=== PATIENT | male | born 1970 | race Caucasian/White ===

== ENCOUNTER → 2020-01-25 19:09 | Outpatient (BNVA) | payer OTHER, SELFPAY | PROVIDERS: Visit Provider Nurse Practitioner Family | DX: R50.9 Fever, unspecified (principal) | CPT/HCPCS: 87400; 87635 ==

== ENCOUNTER → 2020-03-17 09:11 | Outpatient (BNVA) | payer OTHER, SELFPAY | PROVIDERS: Referring Provider Nurse Practitioner; Visit Provider Podiatrist Foot & Ankle Surgery | DX: M79.671 Pain in right foot (principal); M20.21 Hallux rigidus, right foot; S92.911A Unspecified fracture of right toe(s), initial encounter for closed fracture; W22.09XA Striking against other stationary object, initial encounter | CPT/HCPCS: 73630 ==

== ENCOUNTER → 2020-05-25 16:35 | Outpatient (BNVA) | payer OTHER, SELFPAY | PROVIDERS: Visit Provider Dermatology | DX: D48.9 Neoplasm of uncertain behavior, unspecified (principal) | CPT/HCPCS: 88304 ==

== ENCOUNTER → 2020-09-30 13:31 | Outpatient (BNVA) | payer OTHER, SELFPAY | PROVIDERS: PCP Nurse Practitioner; Visit Provider Surgery | DX: Z01.812 Encounter for preprocedural laboratory examination (principal); Z86.010 Personal history of colon polyps | CPT/HCPCS: 87635 ==

== ENCOUNTER 2020-10-05 06:14 | Day surgery (SDC) | payer OTHER, SELFPAY ==
[2020-10-03 14:30] VITALS: BMI 28.0
[2020-10-05 06:29] VITALS: BP 131/86; PULSE 59; RESP 18; TEMP 36.2; O2SAT 97
--- NOTE | 2020-10-05 06:37 | W.PM.OPSUD ---
Surgery/Procedure H&P Update DATE OF PROCEDURE: October 05, 2020 DATE H&P PERFORMED: 09/07/20 H&P UPDATE INFORMATION: I have reviewed H&P completed within last 30 days, I have examined patient prior to procedure and No changes to prior documentation PREOP DIAGNOSIS: History of colon polyps PRIMARY INDICATION FOR PROCEDURE: The same PLANNED PROCEDURE: Operation Date: 10/05/20 07:00 Proposed Procedures p Colonoscopy 50044 Z86.010(Not Applicable) - Dylan Walsh MD
[2020-10-05] MEDS: sodium chloride 0.9% 1,000 ML 30 ML IV (06:41)
--- NOTE | 2020-10-05 06:46 | ANES.PREANE2 ---
Pre-Anesthetic Assessment Pre-Anesthetic Assessment: Height/Weight: Height 1.93 m Weight 104.326 kg Temp Pulse Resp BP Pulse Ox 97.2 F L 59 L 18 131/86 97 10/05/20 06:29 10/05/20 06:29 10/05/20 06:29 10/05/20 06:29 10/05/20 06:29 Preop Diagnosis: History of colon polyps Proposed Procedure: Operation Date: 10/05/20 07:00 Proposed Procedures p Colonoscopy 62806 Z86.010(Not Applicable) - Dylan Walsh MD Familial anesthetic complications: <del>none</del> Was Beta Ron taken within 24 hours: Yes Last intake: Intake Last Liquid Date 10/04/20 Last Liquid Time 21:00 Last Solid Date 10/03/20 Last Solid Time 18:00 Last Intake: 23:00 Social: Social History: Alcohol and No tobacco Packs per day: nightly drink Exam: Pre-Anes Outpt Exam: alert, oriented x 3, clear to auscultation bilaterally and regular rate & rhythm Airway: Submandibular: WNL Cervical ROM: WNL MP: 1 Dentition: Full Pulmonary: Pulmonary: None reported CV/HEM: CV/HEM: HTN : : None reported Hepatic: Hepatic: None reported GI: GI: GERD Metabolic: Metabolic: None reported Musc/skel: Musc/skel: Lower Back Pain Neuropsych: Neuropsych: None reported Anesthetic Plan: ASA status: 2 Anesthesia: MAC Meds/Allergies Current Medications: Current Medications Generic Name Dose Route Start Last Admin Trade Name Freq PRN Reason Stop Dose Admin Sodium Chloride 1,000 mls @ 30 ml s/hr 10/05/20 06:15 10/05/20 06:41 Sodium Chloride 0.9% IV 10/06/20 06:14 30 mls/hr .Q24H MARIA ALEJANDRA Administration PFSH Anesthesia PFSH: Medical History GERD (gastroesophageal reflux disease) Hypertension Social History Smoking and tobacco status: never smoked Alcohol intake: current Alcohol intake frequency: holidays/special occasions only Current occupational status: retired Data Anesthesia Cardiac Studies: No Data to Display
[2020-10-05 07:19] VITALS: BP 112/74; PULSE 54; RESP 16; O2SAT 98
--- NOTE | 2020-10-05 07:32 | ANE.PACU2 ---
Inpatient post-anesthesia follow up: Airway intact: Yes Vital signs: Temperature 97.2 F Pulse Rate 54 Respiratory Rate 16 Blood Pressure 112/74 Pulse Oximetry 98 Oxygen Delivery Me thod Nasal Cannula Oxygen Flow Rate 2 Fraction of Inspir ed Oxygen Hydration adequate: Yes Nausea and vomiting: No Pain level: 1
[2020-10-05 07:35] VITALS: BP 120/85; PULSE 52; RESP 16; TEMP 36.7; O2SAT 96
--- NOTE | 2020-10-05 13:00 | ANE.PACU2 ---
Inpatient post-anesthesia follow up: Airway intact: Yes Vital signs: Temperature 98.1 F Pulse Rate 52 Respiratory Rate 16 Blood Pressure 120/85 Pulse Oximetry 96 Oxygen Delivery Me thod Room Air Oxygen Flow Rate 2 Fraction of Inspir ed Oxygen Hydration adequate: Yes Nausea and vomiting: No Pain level: 2 Mental status: Baseline
== END 2020-10-05 08:14 | disposition home or self-care (01) ==
PROVIDERS: PCP Nurse Practitioner; Visit Provider Surgery
PROC: 0DJD8ZZ Inspection of Lower Intestinal Tract, Via Natural or Artificial Opening Endoscopic (ICD-10-PCS; CPT 45378; principal; 2020-10-05 07:00)
DX: Z86.010 Personal history of colon polyps (principal); K57.30 Diverticulosis of large intestine without perforation or abscess without bleeding; I10 Essential (primary) hypertension; Z79.82 Long term (current) use of aspirin
CPT/HCPCS: 45378; 96360; J2704; J7030

== ENCOUNTER → 2021-06-21 13:54 | Outpatient (BNVA) | payer OTHER, SELFPAY | PROVIDERS: PCP Nurse Practitioner; Visit Provider Nurse Practitioner Family | DX: Z20.822 Contact with and (suspected) exposure to COVID-19 (principal) | CPT/HCPCS: 87400; 87635 ==

== ENCOUNTER → 2023-02-19 15:11 | Outpatient (BNVA) | payer OTHER, SELFPAY | PROVIDERS: PCP Nurse Practitioner; Visit Provider Nurse Practitioner Family | DX: L02.32 Furuncle of buttock (principal); L82.1 Other seborrheic keratosis; Z12.83 Encounter for screening for malignant neoplasm of skin; L85.3 Xerosis cutis; D22.62 Melanocytic nevi of left upper limb, including shoulder; L81.4 Other melanin hyperpigmentation; L70.0 Acne vulgaris; L57.8 Other skin changes due to chronic exposure to nonionizing radiation | CPT/HCPCS: 99213 ==

== ENCOUNTER → 2024-03-04 11:15 | Outpatient (BNVA) | payer OTHER, SELFPAY | PROVIDERS: PCP Nurse Practitioner; Visit Provider Nurse Practitioner Family | DX: L57.8 Other skin changes due to chronic exposure to nonionizing radiation (principal); L82.1 Other seborrheic keratosis; L85.3 Xerosis cutis; D22.62 Melanocytic nevi of left upper limb, including shoulder; L81.4 Other melanin hyperpigmentation | CPT/HCPCS: 99213 ==

== ENCOUNTER → 2024-09-03 14:51 | Outpatient (BNVA) | payer OTHER, SELFPAY | PROVIDERS: PCP Nurse Practitioner; Visit Provider Podiatrist Foot & Ankle Surgery | DX: M79.671 Pain in right foot (principal); M20.21 Hallux rigidus, right foot | CPT/HCPCS: 73630; 99203 ==

== ENCOUNTER → 2024-10-19 08:02 | Outpatient (BNVA) | payer OTHER, SELFPAY | PROVIDERS: PCP Nurse Practitioner; Visit Provider Orthopaedic Surgery | DX: M24.811 Other specific joint derangements of right shoulder, not elsewhere classified (principal) | CPT/HCPCS: 73030; 99204 ==

== ENCOUNTER 2025-01-18 17:26 | Emergency (ER) | payer OTHER, SELFPAY ==
[2025-01-18 17:32] VITALS: BP 145/82; PULSE 71; RESP 17; TEMP 36.6; O2SAT 98; BMI 25.5
[2025-01-18 18:32] LABS: Basophils % 0.3 %; Eosinophils # 0.1 10^3/uL (0.0-0.8); Eosinophils % 1.6 %; Hematocrit 39.3 % (37-53); Lymphocytes # 1.9 10^3/uL (0.8-4.8); Lymphocytes % 31.3 %; Mean Corpuscular HGB Conc 32.1 g/dL (30-55); Mean Corpuscular Hemoglobin 29.4 pg (27-33); Mean Corpuscular Volume 91.6 fl (82-101); Monocytes # 0.5 10^3/uL (0.2-0.9); Monocytes % 8.2 %; Neutrophils # 3.61 10^3/uL (1.8-7.7); Neutrophils % 58.3 %; Nucleated Red Blood Cells % 0 %; Platelet Count 248 10^3/cmm (157-399); Red Blood Count 4.29 10^6/uL (3.85-5.65); Red Cell Distribution Width 12.3 % (12.1-15.1)
[2025-01-18 18:44] LABS: INR 0.95 (0.8-1.2)
[2025-01-18 18:49] LABS: Alanine Aminotransferase 25 U/L (0-41); Albumin Level 4.4 g/dL (3.5-5.2); Alkaline Phosphatase 103 U/L (40-130); Anion Gap 16.1 (5-19); Aspartate Amino Transferase 16 U/L (0-40); Blood Urea Nitrogen 23 mg/dL (6-20); Calcium 8.9 mg/dL (8.5-10.5); Carbon Dioxide 24 mmol/L (22-29); Chloride 104 mmol/L (98-107); Creatinine Clr Calc Pharmacy 133.0805; Glomerular Filtration Rate 100.4 mL/min (90-130); Glucose 98 mg/dL (65-115); Lipase 42 U/L (13-60); Osmolality Calculated 294 mOsm/kg (285-295); Potassium 4.1 mmol/L (3.5-5.1); Sodium 140 mmol/L (136-145); Total Bilirubin 1.1 mg/dL (0.15-1.2); Total Protein 6.4 g/dL (6.6-8.7)
--- NOTE | 2025-01-18 19:43 | CTR_ITS ---
PROCEDURE INFORMATION: Exam: CT Abdomen And Pelvis Without Contrast Exam date and time: 01/18/2025 8:22 PM Age: 54 years old Clinical indication: Abdominal pain; Generalized; Additional info: Abd pain TECHNIQUE: Imaging protocol: Computed tomography of the abdomen and pelvis without contrast. Radiation optimization: All CT scans at this facility use at least one of these dose optimization techniques: automated exposure control; mA and/or kV adjustment per patient size (includes targeted exams where dose is matched to clinical indication); or iterative reconstruction. COMPARISON: No relevant prior studies available. RADIATION DOSE METRICS: Total DLP (mGy-cm): 768.63 FINDINGS: Liver: Unremarkable. Gallbladder and biliary ducts: Cholelithiasis without evidence of acute cholecystitis. Pancreas: Normal. No ductal dilation. Spleen: Unremarkable. Adrenal glands: Unremarkable. Kidneys and ureters: Normal. No hydronephrosis. Stomach and bowel: Unremarkable. No obstruction. No mucosal thickening. Appendix: No evidence of appendicitis. Intraperitoneal space: No free air. No fluid collection. Vasculature: Unremarkable. No abdominal aortic aneurysm. Lymph nodes: No enlarged lymph nodes. Urinary bladder: Unremarkable as visualized. Reproductive: Prostatomegaly. Bones/joints: Mild spondylosis. Significant loss of intervertebral disc space height at L5-S1. Soft tissues: Unremarkable. CT/CT abdomen pelvis con [id number] IMPRESSION: No acute abdominopelvic abnormality.
--- NOTE | 2025-01-18 19:50 | W.ED.GIBLEED ---
HPI - GI Bleed General: Chief complaint: GI Bleed Stated complaint: [facility], diarrhea and black stool, jaundice Time Seen by Provider: 01/18/25 19:14 History of Present Illness: Patient is 54-year-old gentleman with history of hypertension, on aspirin for primary prevention, presents to ED with black tarry stools. Patient initially started having diarrhea on 01/11 - 01/16 with association of burping, nausea. He stated the stools were black and tarry in nature. He has not had this occur before. Last stool was this morning and it was formed but it was black. He does have some association to lightheadedness. He was able to take his medications this morning. He is not on any additional NSAIDs other than meloxicam, which he has not had in some time. His noticed that he was jaundice today. Last colonoscopy was 2 years ago, polyps, diverticuli noted on colonoscopy. Associated symptoms: Reports abdominal pain, nausea and vomiting; Denies chills, easy bruising, fever(s), headache(s) or rash Related Data Home Medications ?Medication ?Instructions ?Recorded ?Confirmed aspirin 81 mg tablet,delayed 81 mg PO DAILY 01/25/20 10/19/24 release (Adult Aspirin Regimen) omeprazole 20 mg capsule,delayed 20 mg PO DAILY 01/25/20 10/19/24 release L.acidophil-L.casei-B.bifid-B.longum-FOS 1 cap PO DAILY 10/04/20 10/19/24 2 billion cell-50 mg capsule (Probiotic Blend) amlodipine 5 mg tablet 5 mg PO DAILY 10/04/20 10/19/24 atorvastatin 40 mg tablet 20 mg PO DAILY 10/04/20 10/19/24 calcium-mag oxide-vitamin D3 250 1 cap PO DAILY 10/04/20 10/19/24 mg-125 mg-200 unit capsule glucosamine 500 mg-msm 100 mg-vit 1 cap PO DAILY 10/04/20 10/19/24 C 20 da-rjgcn-vxib-primrose capsule (Joint Support Complex) multivitamin,tx-minerals 1 tab PO DAILY 10/04/20 10/19/24 benazepril 40 mg tablet 40 mg PO DAILY 09/07/24 10/19/24 docusate sodium PO ONCE 10/19/24 meloxicam 15 mg tablet 15 mg PO DAILY PRN 10/19/24 omeprazole 10 mg capsule,delayed 10 mg PO DAILY 10/19/24 10/19/24 release Previous Rx's ?Medication ?Instructions ?Recorded Custom Accomadative orthotic with #2 ea 09/03/24 mortons extension on right tirzepatide (weight loss) 7.5 7.5 mg (0.5 mL) SUBCUT .qweek 90 12/29/24 mg/0.5 mL subcutaneous pen injector days #2 mL Allergies Allergy/AdvReac Type Severity Reaction Status Date / Time No Known Allergies Allergy Verified 10/19/24 08:02 Review of Systems General: Reports: 10 or more systems reviewed and unremarkable except in HPI and below Const: Denies: fever(s) or chills Eyes: Denies: change in vision or blurry vision ENMT: Denies: throat pain or mouth pain Card: Denies: chest pain or palpitations Resp: Denies: dyspnea or productive cough GI: Reports: abdominal pain, nausea, vomiting, change in bowel habits and change in stool character : Denies: flank pain or difficulty urinating Musc: Denies: neck pain, back pain or joint pain Skin/Breast: Denies: rash or pruritus Neuro: Denies: headache(s) or numbness in extremities Psych: Denies: anxiety or depression Endo: Denies: polyuria or polydipsia Vitaly/Lymph: Denies: easy bruising or easy bleeding All/Imm: Denies: urticaria or throat swelling PFSH ED PFSH: Medical History Diverticulosis Hypertension GERD (gastroesophageal reflux disease) Surgical History History of right knee surgery Social History Smoking and tobacco/nicotine status: never used tobacco/nicotine Alcohol intake: current Alcohol intake frequency: holidays/special occasions only Substance/Drug Use: never Current occupational status: retired Physical Exam Const: COMMON NORMALS: no acute distress, average body habitus and patient oriented x3 HENMT: COMMON NORMALS: normocephalic and atraumatic HEAD & SCALP: normocephalic and atraumatic Lymph: LYMPHATIC: no lymphadenopathy noted Chest: COMMONS NORMALS: normal inspection of the chest Resp: COMMON NORMALS: normal respiratory effort, No retractions and No use of accessory muscles Cardio: COMMON NORMALS: regular rate and regular rhythm RATE: regular rate RHYTHM: regular rhythm GI: COMMON NORMALS: Soft to palpation and No hepatosplenomegaly present AUSCULTATION: Yes Hypoactive bowel sounds present PALPATION: Yes Soft to palpation, Yes Tenderness to palpation present (GI) Details: other (diffusely) and Yes No hepatosplenomegaly present RECTAL EXAM: Yes deferred : COMMON NORMALS: Yes no CVA tenderness BLADDER/KIDNEY EXAM: Yes no CVA tenderness Back/Pelvis: COMMON NORMALS: no CVA tenderness Extremity: COMMON NORMALS: normal to inspection and full ROM Neuro: COMMON NORMALS: patient oriented x3 Psych: COMMON NORMALS: mental status grossly normal, Normal thought process present and cooperative THOUGHT PROCESS: Normal thought process present Skin: COMMON NORMALS: no rashes or lesions noted and no wounds GENERAL SKIN EXAM: no rashes or lesions noted Course Vital Signs: Vital signs: Vital Signs Temperature 97.9 F 01/18/25 17:32 Pulse Rate 61 01/18/25 22:21 Respiratory Rate 17 01/18/25 17:32 Blood Pressure 110/92 01/18/25 22:21 Pulse Oximetry 94 01/18/25 22:21 Oxygen Delivery Me thod Room Air 01/18/25 17:32 MDM - GI Bleed Medical Decision Making Patient is a 54-year-old gentleman on baby aspirin for primary prevention, on as needed meloxicam (took once last week-6 days ago, and 2x the week before) that presents with black tarry stools for 1 week, now formed stools however still dark, associated with nausea and vomiting, however not today. His last colonoscopy was 2 years ago noting polyps and diverticuli. Considerations at the top of the list is upper GI bleed. He does have some mild epigastric tenderness, however no rebound. No hepatomegaly and no jaundice appreciated. Will obtain routine labs, urine analysis, H. pylori, lipase, and CT his abdomen pelvis. Further decision making to follow. CT abdomen pelvis is without finding. Hemoglobin is stable at 12.6. Patient is without any complaints. Will send home, continue omeprazole, hold aspirin, meloxicam, and have patient follow-up with primary doctor that he is in close contact with. Lab Data 01/18/25 18:19 01/18/25 18:19 Radiology Impressions Abdomen/Pelvis CT 01/18/25 19:43 IMPRESSION: No acute abdominopelvic abnormality. Laboratory Results WBC 6.20 10^3/uL (3.29-11.43) 01/18/25 18:19 RBC 4.29 10^6/uL (3.85-5.65) 01/18/25 18:19 Hgb 12.60 g/dL (11.27-16.99) 01/18/25 18:19 Hct 39.3 % (37-53) 01/18/25 18:19 MCV 91.6 fl (82-101) 01/18/25 18:19 MCH 29.4 pg (27-33) 01/18/25 18:19 MCHC 32.1 g/dL (30-55) 01/18/25 18:19 RDW 12.3 % (12.1-15.1) 01/18/25 18:19 Plt Count 248 10^3/cmm (157-399) 01/18/25 18:19 MPV 11.0 fL (7.4-10.4) H 01/18/25 18:19 Neut % (Auto) 58.3 % 01/18/25 18:19 Lymph % (Auto) 31.3 % 01/18/25 18:19 [place] % (Auto) 8.2 % 01/18/25 18:19 Eos % (Auto) 1.6 % 01/18/25 18:19 Baso % (Auto) 0.3 % 01/18/25 18:19 Neut # (Auto) 3.61 10^3/uL (1.8-7.7) 01/18/25 18:19 Lymph # (Auto) 1.9 10^3/uL (0.8-4.8) 01/18/25 18:19 [place] # (Auto) 0.5 10^3/uL (0.2-0.9) 01/18/25 18:19 Eos # (Auto) 0.1 10^3/uL (0.0-0.8) 01/18/25 18:19 Baso # (Auto) 0.0 10^3/uL (0.0-0.1) 01/18/25 18:19 Nucleated RBC % (auto) 0 % 01/18/25 18:19 Nucleated RBCs # 0.0 /100WBC 01/18/25 18:19 PT 13.30 SECONDS (12.1-14.9) 01/18/25 18:19 INR 0.95 (0.8-1.2) 01/18/25 18:19 Sodium 140 mmol/L (136-145) 01/18/25 18:19 Potassium 4.1 mmol/L (3.5-5.1) 01/18/25 18:19 Chloride 104 mmol/L (98-107) 01/18/25 18:19 Carbon Dioxide 24 mmol/L (22-29) 01/18/25 18:19 Anion Gap 16.1 (5-19) 01/18/25 18:19 BUN 23 mg/dL (6-20) H 01/18/25 18:19 Creatinine 0.8 mg/dL (0.7-1.2) 01/18/25 18:19 GFR Calculation 100.4 mL/min (90-130) 01/18/25 18:19 Glucose 98 mg/dL (65-115) 01/18/25 18:19 Calculated Osmolality 294 mOsm/kg (285-295) 01/18/25 18:19 Calcium 8.9 mg/dL (8.5-10.5) 01/18/25 18:19 Total Bilirubin 1.1 mg/dL (0.15-1.2) 01/18/25 18:19 AST 16 U/L (0-40) 01/18/25 18:19 ALT 25 U/L (0-41) 01/18/25 18:19 Alkaline Phosphatase 103 U/L (40-130) 01/18/25 18:19 Total Protein 6.4 g/dL (6.6-8.7) L 01/18/25 18:19 Albumin 4.4 g/dL (3.5-5.2) 01/18/25 18:19 Globulin 2.0 g/dL (1.3-4.6) 01/18/25 18:19 Lipase 42 U/L (13-60) 01/18/25 18:19 Urine Color Yellow (Yellow) 01/18/25 19:52 Urine Appearance Clear (CLEAR) 01/18/25 19:52 Urine pH 5.5 (5-7) 01/18/25 19:52 Ur Specific [place] 1.030 (1.005-1.030) 01/18/25 19:52 Urine Protein Negative (Negative) 01/18/25 19:52 Urine Glucose (UA) Negative (Normal) 01/18/25 19:52 Urine Ketones Trace (Negative) 01/18/25 19:52 Urine Blood Negative (Negative) 01/18/25 19:52 Urine Nitrate Negative (Negative) 01/18/25 19:52 Urine Bilirubin Negative (Negative) 01/18/25 19:52 Urine Urobilinogen 1.0 mg/dL (Negative) 01/18/25 19:52 Ur Leukocyte Esterase Negative (Negative) 01/18/25 19:52 Urine RBC 0-2 /hpf (0-2) 01/18/25 19:52 Urine WBC 0-5 /hpf (0-5) 01/18/25 19:52 Ur Squamous Epith Cells 0-5 /hpf (0-5) 01/18/25 19:52 Amorphous Sediment Not Reportable 01/18/25 19:52 Urine Bacteria None seen /hpf (NONE) 01/18/25 19:52 Hyaline Casts 0-4 /lpf H 01/18/25 19:52 H. pylori IgG Antibody Negative (Negative) 01/18/25 18:19 All radiology interpretation(s) finalized by discharge ED provider radiology interpretation(s): no acute Discharge Plan Discharge Patient Disposition: Home Clinical Impression: Melena Condition: Stable Prescriptions: No Action omeprazole 20 mg capsule,delayed release(DR/EC) 20 mg PO DAILY aspirin [Adult Aspirin Regimen] 81 mg tablet,delayed release (DR/EC) 81 mg PO DAILY (DME) Custom Accomadative orthotic with mortons extension on right See Rx Instructions .ROUTE .MEDSUPPLY Qty: 2 0RF Rx Instructions: As directed benazepril 40 mg tablet 40 mg PO DAILY meloxicam 15 mg tablet 15 mg PO DAILY PRN omeprazole 10 mg capsule,delayed release(DR/EC) 10 mg PO DAILY docusate sodium 15 mg tablet PO ONCE tirzepatide (weight loss) 7.5 mg/0.5 mL pen injector 7.5 mg SUBCUT .qweek 90 Days Qty: 2 3RF atorvastatin 40 mg Tablet 20 mg PO DAILY amlodipine 5 mg Tablet 5 mg PO DAILY multivitamin,tx-minerals Tablet 1 tab PO DAILY calcium-mag oxide-vitamin D3 250-125-200 mg-mg-unit Capsule 1 cap PO DAILY Joint Support Complex 765-300-79-0.5 mg Capsule 1 cap PO DAILY Probiotic Blend 2 billion cell-50 mg Capsule 1 cap PO DAILY Discharge Orders: Discharge ED (Routine); Ordered 01/18/25 Ordered By: Polly Salazar Referrals: Kiera Diane FNP [Primary Care Provider, Nurse Practitioner] Discharge Diet: Full LIquid Discharge Activity: Resume usual activity Patient Instructions: Melena (ED) Activity Restrictions/Additional Instructions: Hold aspirin, meloxicam until follow-up with your doctor this week. Do not take ibuprofen or naproxen [id number]. Tylenol for pain. Laboratory data, CAT scan are without any acute findings. Your H. pylori was negative Continue omeprazole daily Full liquid diet and advance to a bland diet over the next 48 hours. Return to ED for further issues with having blood from your rectum or black tarry stools. It is important you follow-up with your primary care physician this week and potentially test your labs. Print Language: Albanian Coding Level of Care Code ED Manager [employer] for [facility]
[2025-01-18 19:57] LABS: Bilirubin Urine Negative (Negative); Blood Urine Negative (Negative); Glucose Urine UA Negative (Normal); Ketones Urine Trace (Negative); Leukocyte Esterase Urine Negative (Negative); Nitrate Urine Negative (Negative); Protein Urine Negative (Negative); Urine Appearance Clear (CLEAR); Urine Color Yellow (Yellow); pH Urine 5.5 (5-7)
[2025-01-18 20:00] VITALS: BP 131/86; PULSE 59; O2SAT 99
[2025-01-18 20:00] LABS: Add Urine Microscopic? YES; Bacteria Urine None Seen /hpf; Hyaline Casts Urine 0-4 /lpf; RBC Urine 0-2 /hpf (0-2); Squamous Epithelial Cell Urine 0-5 /hpf (0-5); WBC Urine 0-5 /hpf (0-5)
[2025-01-18 20:18] LABS: Add Urine Culture? No
[2025-01-18 20:18] LABS: H. Pylori IgG Antibody Negative (Negative)
[2025-01-18 20:35] VITALS: BP 137/93; PULSE 59; O2SAT 100
[2025-01-18 21:05] VITALS: BP 128/92; PULSE 56; O2SAT 95
[2025-01-18 22:00] VITALS: BP 131/93; PULSE 59; O2SAT 95
[2025-01-18 22:21] VITALS: BP 110/92; PULSE 61; O2SAT 94
== END 2025-01-18 22:15 | disposition home or self-care (01) ==
PROVIDERS: Emergency Medicine; Emergency Provider Physician Assistant; PCP Nurse Practitioner
DX: K92.1 Melena (principal); Z79.82 Long term (current) use of aspirin; I10 Essential (primary) hypertension
CPT/HCPCS: 36415; 74176; 80053; 81001; 83690; 85025; 85610; 86677; 99284

== ENCOUNTER → 2025-02-04 11:09 | Outpatient (BNVA) | payer OTHER, SELFPAY | PROVIDERS: PCP Nurse Practitioner; Visit Provider Podiatrist Foot & Ankle Surgery | DX: M20.21 Hallux rigidus, right foot (principal); M79.671 Pain in right foot; Z01.818 Encounter for other preprocedural examination | CPT/HCPCS: 99214 ==

== ENCOUNTER → 2025-02-08 09:39 | Outpatient (BNVA) | payer OTHER, SELFPAY | PROVIDERS: PCP Nurse Practitioner; Visit Provider Nurse Practitioner Family | DX: L82.1 Other seborrheic keratosis (principal); L57.8 Other skin changes due to chronic exposure to nonionizing radiation; L81.4 Other melanin hyperpigmentation; D22.5 Melanocytic nevi of trunk; Z12.83 Encounter for screening for malignant neoplasm of skin; D48.5 Neoplasm of uncertain behavior of skin | CPT/HCPCS: 11102; 99213 ==

== ENCOUNTER 2025-02-12 05:59 | Day surgery (SDC) | payer OTHER, SELFPAY ==
[2025-02-12] VITALS (7 sets, daily range): BP systolic 103–148; BP diastolic 53–90; PULSE 56–63; RESP 12–18; TEMP 36.1–36.8; O2SAT 93–97; BMI 25.5
--- NOTE | 2025-02-12 | XR_ITS ---
WS: [id number] XR foot RT min 3V* [id number] REASON FOR EXAM: ELIAZAR PICS FINDINGS: Plate and screw arthrodesis of the first MTP joint. Surgical appliances are intact and in proper position and alignment. Expected alignment of the arthrodesis. XR/XR foot RT min 3V* [id number] IMPRESSION: First toe arthrodesis without abnormality as above.
--- NOTE | 2025-02-12 06:03 | ANES.PREANE2 ---
Pre-Anesthetic Assessment Height/Weight: Height 6 ft 4 in Preop Diagnosis: Right hallux rigidus Operation Date: 02/12/25 07:00 Proposed Procedures p RIGHT First Metatarsophalangeal Joint Fusion(Right) - Darrion Boudreaux DPM Was Beta Ron taken within 24 hours: N/A Was Clonidine taken within 24 hours: N/A Social Alcohol and No tobacco Exam alert, oriented x 3, clear to auscultation bilaterally and regular rate & rhythm Airway Submandibular: within normal limits Cervical ROM: within normal limits Mallampati: Class II Dentition: full Anesthetic Plan ASA status: 3 Anesthesia: MAC Other: Patient states that he woke up very emotional from anesthesia NPO since yesterday evening History of hypertension, on amlodipine and benazepril GERD, controlled with omeprazole Patient takes tirzepatide but has not taken this since 02/03/2025 Occasional alcohol use, about once a week Labs reviewed 01/18/2025 and acceptable for procedure Plan for MAC anesthesia with local via surgeon Medications/Allergies Home Medications ?Medication ?Instructions ?Recorded ?Confirmed ?Last Taken ?Type aspirin 81 mg tablet,delayed 81 mg PO DAILY 01/25/20 02/12/25 02/04/25 History release (Adult Aspirin Regimen) L.acidophil-L.casei-B.bifid-B.longum-FOS 1 cap PO DAILY 10/04/20 02/12/25 02/11/25 History 2 billion cell-50 mg capsule (Probiotic Blend) amlodipine 5 mg tablet 5 mg PO DAILY 10/04/20 02/12/25 02/12/25 History atorvastatin 40 mg tablet 20 mg PO DAILY 10/04/20 02/12/25 02/11/25 History calcium-mag oxide-vitamin D3 250 1 cap PO DAILY 10/04/20 02/12/25 02/11/25 History mg-125 mg-200 unit capsule glucosamine 500 mg-msm 100 mg-vit 1 cap PO DAILY 10/04/20 02/12/25 02/11/25 History C 20 tk-wfxyq-mrpk-primrose capsule (Joint Support Complex) multivitamin,tx-minerals 1 tab PO DAILY 10/04/20 02/12/25 02/11/25 History Custom Accomadative orthotic with #2 ea 09/03/24 02/04/25 Unknown Rx mortons extension on right benazepril 40 mg tablet 40 mg PO DAILY 09/07/24 02/12/25 02/12/25 History docusate sodium 15 mg PO ONCE 10/19/24 02/12/25 02/10/25 History meloxicam 15 mg tablet 15 mg PO DAILY PRN Pain 10/19/24 02/12/25 Unknown History omeprazole 10 mg capsule,delayed 10 mg PO DAILY 10/19/24 02/12/25 02/11/25 History release tirzepatide (weight loss) 5 mg/0.5 5 mg (0.5 mL) SUBCUT .qweek 90 01/19/25 02/11/25 02/03/25 Rx mL subcutaneous pen injector days #6 mL hydrocodone 10 mg-acetaminophen 1 tab PO Q6H PRN pain 7 days #28 02/12/25 Unknown Rx 325 mg tablet tabs Allergies Allergy/AdvReac Type Severity Reaction Status Date / Time No Known Allergies Allergy Verified 02/12/25 06:06 [facility] Anesthesia Medical History Diverticulosis Hypertension GERD (gastroesophageal reflux disease) Surgical History (Updated 02/12/25 @ 06:11 by Darrion Boudreaux DPM) History of right knee surgery Social History Smoking and tobacco/nicotine status: never used tobacco/nicotine Alcohol intake: current Alcohol intake frequency: holidays/special occasions only Substance/Drug Use: never Current occupational status: retired
--- NOTE | 2025-02-12 06:10 | W.PM.OPSUD ---
Surgery/Procedure H&P Update DATE OF PROCEDURE: February 12, 2025 DATE H&P PERFORMED: 02/04/25 H&P UPDATE INFORMATION: I have reviewed H&P completed within last 30 days, I have examined patient prior to procedure, No changes to prior documentation and Risks and benefits of the procedure reviewed PREOP DIAGNOSIS: Right hallux rigidus PLANNED PROCEDURE: Operation Date: 02/12/25 07:00 Proposed Procedures p RIGHT First Metatarsophalangeal Joint Fusion(Right) - Darrion Boudreaux DPM
[2025-02-12] MEDS: ceFAZolin 2,000 mg SDV 2000 MG IVP (07:01)
[2025-02-12] MEDS: BUPivacaine liposome 13.3 mg/mL SDV 20 mL 266 MG INJECTION (07:40)
[2025-02-12] MEDS: BUPivacaine 0.5% INJ 10 mL 20 ML INJECTION (07:40)
[2025-02-12] MEDS: tranexamic acid 1,000 mg/10mL SDV 1000 MG IV (07:41)
--- NOTE | 2025-02-12 08:12 | W.PM.BPON ---
Date of Procedure: 10/18/23 Surgeon: Darrion Boudreaux DPM Religious Ritual Slaughterer(s): Emanuel Oconnor Procedure(s) performed: Right first metatarsal phalangeal joint arthrodesis. Findings of the procedure(s): None Estimated blood loss: 2 mL Specimen(s) removed: None Post-operative diagnosis: Right hallux rigidus Local MAC, [place] block right foot, tourniquet time 53 minutes
--- NOTE | 2025-02-12 08:13 | P.OP_ITS ---
Operative Report Date of procedure: February 12, 2025 Pre-op diagnosis: Hallux rigidus of right foot M20.21 Post-op diagnosis: Hallux rigidus of right foot M20.21 Procedure done: Right first metatarsal phalangeal joint fusion. CPT code 00720 Implants: [place] 5 degree primary first MTPJ arthrodesis plate with 3.5 mm locking and nonlocking screws and 3 mm homerun screw, 1 cc of beast plus DBM, 3-0 Vicryl, 4- 0 Vicryl, 4-0 Monocryl Specimens removed/disposition: No specimens removed Pathology: No pathology Surgeon: Darrion Boudreaux DPM Clinical Care Leader: Emanuel Oconnor Estimated blood loss: 2 mL 53 minutes IV fluids: See intraoperative documentation Urine output: None Complications: No complications Findings: Right hallux rigidus Brief History: X-ray shows subchondral sclerosis and joint space loss [id number] right first metatarsal phalangeal joint with bossing dorsally and loose osseous bodies at the dorsal aspect of the right first metatarsal phalangeal joint appreciated on the lateral view. Mild hallux valgus to the right. X-ray right foot AP oblique and lateral view weightbearing taken September 03, 2024. 53-year-old male with a history of a hairline fracture presenting with pain and stiffness in the right great toe, consistent with hallux rigidus. The condition appears to be progressing, with recent imaging indicating osteoarthritic changes. Interventions have included orthotics and meloxicam, though these have provided limited relief. The patient experiences significant discomfort, particularly after prolonged periods of walking or standing. I reviewed at length with the patient, the risks, potential complications, benefits, alternatives, expectations, and typical outcomes associated with the surgery. The risks and potential complications were explained in detail, including but not limited to infection, wound dehiscence or soft tissue complications, bleeding and hematoma, chronic edema, neuritis or nerve damage producing numbness or chronic pain, CRPS, failure to relieve pain or worsening pain, thick / painful / unsightly scar, limited motion / stiffness, malposition, delayed union, malunion, or nonunion, fracture, reaction to implants, anesthetic complications, venous thromboembolism, and deformity recurrence. I discussed the notion of no regrets with the patient as it pertains to complications and outcomes. The patient seemed to understand the nature of the proposed care and required convalescence. They asked appropriate questions, answered to their satisfaction. They are aware no guarantees can be made as to a satisfactory outcome and they understand there may be other possible unforeseen complications or outcomes not listed here that will be treated accordingly if they arise. There were no written or implied guarantees given to the patient. They gave informed consent to proceed. Procedure: Under mild sedation the patient was brought to the operating room and remained on the gurney in supine position. A timeout was performed. Anesthesia was then administered by the anesthesia service. Local anesthesia injected by myself consisting of 20 cc of 0.5% Marcaine plain in a right Cortez block fashion. An additional 20 cc of Exparel infiltrated proximal to the operative site in a grid like fashion subcutaneously. Well-padded pneumatic tourniquet applied to the right ankle. Right lower extremity was then scrubbed, prepped and draped utilizing normal aseptic technique. Right foot and ankle were exanguinated with an Esmarch bandage and tourniquet inflated to 250 mmHg. Attention was directed to the dorsal aspect of the right first metatarsal phalangeal joint. Crepitus and decreased range of motion appreciated intraoperatively of the right first metatarsal phalangeal joint less than 10 degrees of dorsiflexion appreciated. A #15 blade utilized to perform a linear incision directly over the dorsal aspect of the right first metatarsal phalangeal joint through skin with dissection carried down through subcutaneous tissue to the layer of periosteum and joint capsule with care taken to retract and preserve neurovascular and tendinous structures. All bleeders were ligated and cauterized as necessary. Capsular and periosteal incision was made in the head of the first metatarsal and base of the proximal phalanx were freed from their soft tissue and capsular attachments. Cone and cup reamers utilized to p repare first metatarsal phalange joint for arthrodesis down through subchondral plate followed by saline flush and fenestrating drill bit to create vascular channels and autogenous bone graft at the arthrodesis site right first metatarsal phalangeal joint was held in slight dorsiflexion slight valgus and neutral in the frontal plane and temporarily fixated confirmed excellent placement when simulated weightbearing with flat surface in the operating room with the great toe making contact but not excessive at the plantar aspect of the right great toe. This was then fixated with a dorsal locking plate with 3.5 mm locking screws distally and a combination of locking and nonlocking screws proximally and a 3 mm homerun screw with excellent bony apposition and compression noted 1 cc of demineralized bone matrix packed at the arthrodesis site provided by Lane Donnelly. Final imaging with AP oblique and lateral views confirmed excellent placement of hardware in all 3 planes at the right first me tatarsal phalangeal joint and excellent positioning of anatomic alignment. The incision was irrigated with saline solution and closed in a layered fashion with 3-0 Vicryl, 4-0 Vicryl and 4-0 Monocryl followed by application of Steri-Strips. The incision was dressed with Xeroform, sterile 4 x 4 gauze, Kerlix and Adria wrap followed by application of a cam boot to the right lower extremity. Tourniquet was deflated and a prompt hyperemic response is noted to the distal digits of the right foot. Patient tolerated the procedure and anesthesia well and was transferred to the PACU with vital signs stable and vascular status intact. Following a period of postoperative monitoring he will be discharged home without home care instructions and scheduled follow-up.
--- NOTE | 2025-02-12 09:08 | ANE.PACU2 ---
Inpatient post-anesthesia follow up: Airway intact: Yes Vital signs: Temperature 98.3 F Pulse Rate 56 Respiratory Rate 17 Blood Pressure 119/79 Pulse Oximetry 96 Oxygen Delivery Me thod Room Air Oxygen Flow Rate Fraction of Inspir ed Oxygen Hydration adequate: Yes Nausea and vomiting: No Pain level: 1 Mental status: Baseline
== END 2025-02-12 09:08 | disposition home or self-care (01) ==
PROVIDERS: PCP Nurse Practitioner; Visit Provider Podiatrist Foot & Ankle Surgery
PROC: (CPT 28750; principal; 2025-02-12 07:00)
DX: M20.21 Hallux rigidus, right foot (principal); I10 Essential (primary) hypertension; K21.9 Gastro-esophageal reflux disease without esophagitis; Z79.82 Long term (current) use of aspirin; K57.90 Diverticulosis of intestine, part unspecified, without perforation or abscess without bleeding
CPT/HCPCS: 28750; 73630; 76000; C1713; J0666; J0690; J2250; J2704; J3010; J3490; J7030; J9999

== ENCOUNTER → 2025-02-25 12:10 | Outpatient (BNVA) | payer OTHER, SELFPAY | PROVIDERS: PCP Nurse Practitioner; Visit Provider Podiatrist Foot & Ankle Surgery | DX: Z98.890 Other specified postprocedural states (principal) | CPT/HCPCS: 73630; 99024 ==

== ENCOUNTER → 2025-03-25 12:56 | Outpatient (BNVA) | payer OTHER, SELFPAY | PROVIDERS: PCP Nurse Practitioner; Visit Provider Podiatrist Foot & Ankle Surgery | DX: Z98.890 Other specified postprocedural states (principal) | CPT/HCPCS: 73630; 99024 ==

== ENCOUNTER 2025-03-29 08:07 | Outpatient (CLI) | payer OTHER, SELFPAY ==
--- NOTE | 2025-03-29 08:17 | US_ITS ---
WS: [id number] RIGHT UPPER QUADRANT ULTRASOUND HISTORY: GALLBLADDER ISSUES/ABD PAIN COMPARISON: None available. Liver: 17.9 cm in length. Liver is top normal size. No masses identified. No bile duct dilatation. Portal Vein: Normal hepatopetal flow with monophasic waveform. Gallbladder: Normally distended gallbladder with numerous stones. No pericholecystic fluid. CBD: 0.4 cm Pancreas: As visualized normal. Partially obscured by bowel gas. Right kidney: 10.6 cm in length. Normal size and echogenicity. No hydronephrosis or mass. Small cyst in the central pelvis measures 1.9 x 1.6 x 1.7 cm. Aorta and IVC: Unremarkable abdominal aorta and IVC. No ascites. US/US abdomen limited [id number] IMPRESSION: 1. Cholelithiasis without acute cholecystitis. Numerous stones present in the gallbladder. Recommend evaluation by general surgery. 2. Negative liver.
== END 2025-03-29 08:08 | disposition home or self-care (01) ==
LOC: RAD 08:09
PROVIDERS: PCP Nurse Practitioner; Visit Provider Nurse Practitioner
DX: K80.20 Calculus of gallbladder without cholecystitis without obstruction (principal)
CPT/HCPCS: 76705

== ENCOUNTER → 2025-04-08 11:33 | Outpatient (BNVA) | payer OTHER, SELFPAY | PROVIDERS: PCP Nurse Practitioner; Visit Provider Podiatrist Foot & Ankle Surgery | DX: Z98.890 Other specified postprocedural states (principal) | CPT/HCPCS: 73630 ==

== ENCOUNTER 2025-04-08 12:05 | Outpatient (CLI) | payer OTHER, SELFPAY | END 2025-04-08 12:06 | disposition home or self-care (01) | LOC: SPT 12:06 | PROVIDERS: PCP Nurse Practitioner; Visit Provider Podiatrist Foot & Ankle Surgery | DX: Z47.89 Encounter for other orthopedic aftercare (principal); Z98.890 Other specified postprocedural states | CPT/HCPCS: 99024; L3031 ==

== ENCOUNTER → 2025-04-28 12:30 | Outpatient (BNVA) | payer OTHER, SELFPAY | PROVIDERS: PCP Nurse Practitioner; Visit Provider Podiatrist Foot & Ankle Surgery | DX: Z98.890 Other specified postprocedural states (principal); Z98.1 Arthrodesis status; K82.9 Disease of gallbladder, unspecified | CPT/HCPCS: 73630; 99024; 99203 ==

== ENCOUNTER → 2025-05-26 13:14 | Outpatient (BNVA) | payer OTHER, SELFPAY | PROVIDERS: PCP Nurse Practitioner; Visit Provider Podiatrist Foot & Ankle Surgery | DX: Z98.890 Other specified postprocedural states (principal) | CPT/HCPCS: 73630; 99024 ==

== ENCOUNTER → 2025-07-15 08:54 | Outpatient (BNVA) | payer OTHER, SELFPAY | PROVIDERS: PCP Nurse Practitioner; Visit Provider Podiatrist Foot & Ankle Surgery | DX: L60.0 Ingrowing nail (principal) | CPT/HCPCS: 11750; J9999 ==